=== PATIENT | female | born 1975 | race Caucasian/White ===

== ENCOUNTER → 2016-06-05 | Outpatient (CLI) | payer BC ==
--- NOTE | 2016-06-05 18:54 | CT ---
EXAMINATION TYPE: CT abdomen pelvis wo con DATE OF EXAM: 06/05/2016 6:41 PM COMPARISON: 12/22/2007 HISTORY: RUQ pain and hematuria. CT DLP: 888 mGycm Automated exposure control for dose reduction was used. TECHNIQUE: Helical acquisition of images was performed from the lung bases through the pelvis. FINDINGS: Lung bases are clear. There is no pleural effusion. Heart size is normal. Liver spleen pancreas appear normal. There are clips from cholecystectomy. There is no adrenal mass. There is a 2 mm calcification in the upper pole left kidney. There is no hy dronephrosis. There is no retroperitoneal adenopathy. There are clips apparently from appendectomy. There is a 1.7 cm rounded soft tissue density associate d with the wall of the proximal sigmoid colon on axial image 105. There are no dilated loops. Bladder distends smoothly. Bony structures appear intact. IMPRESSION: THERE IS A SMALL CALCIFICATION IN THE LEFT KIDNEY THAT APPEARS NEW COMPARED TO OLD EXAM. NO SIGN OF A CUTE ABDOMEN AND PELVIS. POSSIBLE 1.7 CM MASS ON THE WALL OF THE PROXIMAL SIGMOID COLON. THIS COULD BE EXCLUDED OR CONFIRMED B Y REPEAT PELVIS CT SCAN WITH BOWEL PREPARATION
== END | disposition home or self-care (01) ==
LOC: RADCTMAIN 18:24
PROVIDERS: ATTEND Internal Medicine Geriatric Medicine
DX: N28.89 Other specified disorders of kidney and ureter (principal)
CPT/HCPCS: 74176

== ENCOUNTER → 2016-09-07 | Outpatient (CLI) | payer BC ==
[2016-09-07 07:44] LABS: Basophils # (A) 0.1 k/uL (0-0.2); Basophils % (A) 1 %; CH 32.7; CHCM 33.6; Eosinophils # (A) 0.2 k/uL (0-0.7); Eosinophils % (A) 3 %; HCT 42.3 % (34.0-46.0); HDW 2.11; HGB 14.1 gm/dL (11.4-16.0); Luc # (Auto) 0.15; Luc % (Auto) 2; Lymphocytes # (A) 2.2 k/uL (1.0-4.8); Lymphocytes % (A) 27 %; MCH 32.6 pg (25.0-35.0); MCHC 33.4 g/dL (31.0-37.0); MCV 97.7 fL (80.0-100.0); Mean Platelet Volume 7.2; Monocytes # (A) 0.3 k/uL (0-1.0); Monocytes % (A) 4 %; Neutrophils # (A) 5.3 k/uL (1.3-7.7); Neutrophils % (A) 64 %; RBC 4.33 m/uL (3.80-5.40); RDW 13.8 % (11.5-15.5); WBC 8.2 k/uL (3.8-10.6); WBC (Perox) 8.12
[2016-09-07 11:09] LABS: ALT 30 U/L (9-52); AST 17 U/L (14-36); Alkaline Phosphatase 46 U/L (38-126); Anion Gap 10 mmol/L; Blood Urea Nitrogen 13 mg/dL (7-17); Carbon Dioxide 25 mmol/L (22-30); Chloride 106 mmol/L (98-107); Cholesterol 165 mg/dL (<200); Creatine Kinase 75 U/L (30-135); Glucose 82 mg/dL (74-99); HDL Cholesterol 45 mg/dL (40-60); Iron 107 ug/dL (37-170); Non-African American GFR(MDRD) >60 (>60 ml/min/1.73 sqM); Potassium 4.1 mmol/L (3.5-5.1); Sodium 141 mmol/L (137-145); Total Bilirubin 0.5 mg/dL (0.2-1.3); Total Protein 6.7 g/dL (6.3-8.2); Triglycerides 74 mg/dL (<150)
[2016-09-07 11:19] LABS: % Iron Saturation 51.9 % (20-50); Total Iron Binding Capacity 206 ug/dL (265-497)
[2016-09-07 12:01] LABS: Vitamin B12 802 pg/mL (239-931)
== END | disposition home or self-care (01) ==
LOC: LABWHC1 06:39
PROVIDERS: ATTEND Family Medicine
DX: K63.5 Polyp of colon (principal); R53.83 Other fatigue; M79.7 Fibromyalgia; Z72.820 Sleep deprivation
CPT/HCPCS: 36415; 80053; 80061; 82105; 82378; 82550; 82607; 83540; 83550; 84439; 84443; 85025; 86376

== ENCOUNTER → 2016-10-10 | Outpatient (CLI) | payer BC | END | disposition home or self-care (01) | LOC: LABWHC1 06:43 | PROVIDERS: ATTEND Nurse Practitioner | DX: D64.9 Anemia, unspecified (principal); R53.83 Other fatigue | CPT/HCPCS: 36415; 82728; 83540; 83550; 84466 ==

== ENCOUNTER → 2016-10-12 | Outpatient (CLI) | payer BC | END | disposition home or self-care (01) | LOC: LABWHC1 06:44 | PROVIDERS: ATTEND Family Medicine | DX: D45 Polycythemia vera (principal) | CPT/HCPCS: 36415; 82533 ==

== ENCOUNTER → 2017-01-16 | Outpatient (CLI) | payer BC ==
[2017-01-16 17:12] LABS: Basophils # (A) 0.1 k/uL (0-0.2); Basophils % (A) 1 %; CH 32.1; CHCM 32.3; Eosinophils # (A) 0.3 k/uL (0-0.7); Eosinophils % (A) 3 %; HCT 40.2 % (34.0-46.0); HDW 2.01; HGB 12.9 gm/dL (11.4-16.0); Luc # (Auto) 0.12; Luc % (Auto) 2; Lymphocytes # (A) 2.9 k/uL (1.0-4.8); Lymphocytes % (A) 37 %; MCH 32.1 pg (25.0-35.0); MCHC 32.1 g/dL (31.0-37.0); MCV 99.9 fL (80.0-100.0); Mean Platelet Volume 7.2; Monocytes # (A) 0.6 k/uL (0-1.0); Monocytes % (A) 7 %; Neutrophils # (A) 3.9 k/uL (1.3-7.7); Neutrophils % (A) 50 %; RBC 4.02 m/uL (3.80-5.40); RDW 13.9 % (11.5-15.5); WBC 7.9 k/uL (3.8-10.6); WBC (Perox) 8.73
[2017-01-17 01:08] LABS: Iron Saturation 22.01 (12.00-45.00)
== END | disposition home or self-care (01) ==
LOC: LABWHC1 16:35
PROVIDERS: ATTEND Internal Medicine Pulmonary Disease
DX: D64.9 Anemia, unspecified (principal)
CPT/HCPCS: 36415; 82728; 83540; 83550; 84466; 85025

== ENCOUNTER → 2017-01-18 | Outpatient (CLI) | payer BC ==
[2017-01-18 08:16] LABS: ALT 31 U/L (9-52); AST 20 U/L (14-36); Alkaline Phosphatase 44 U/L (38-126); Anion Gap 7 mmol/L; Blood Urea Nitrogen 11 mg/dL (7-17); Calcium 9.1 mg/dL (8.4-10.2); Carbon Dioxide 27 mmol/L (22-30); Chloride 106 mmol/L (98-107); Cholesterol 180 mg/dL (<200); Creatine Kinase 53 U/L (30-135); Glucose 94 mg/dL (74-99); HDL Cholesterol 47 mg/dL (40-60); Non-African American GFR(MDRD) >60 (>60 ml/min/1.73 sqM); Potassium 4.6 mmol/L (3.5-5.1); Sodium 140 mmol/L (137-145); Total Bilirubin 0.4 mg/dL (0.2-1.3); Total Protein 7.1 g/dL (6.3-8.2)
== END | disposition home or self-care (01) ==
LOC: LABWHC1 06:39
PROVIDERS: ATTEND Family Medicine
DX: M79.7 Fibromyalgia (principal); K63.5 Polyp of colon
CPT/HCPCS: 36415; 80053; 80061; 82550; 82607; 84439; 84443

== ENCOUNTER → 2017-02-08 | Outpatient (CLI) | payer BC ==
--- NOTE | 2017-02-09 14:27 | MR ---
MRI CERVICAL SPINE: CLINICAL HISTORY: Spondylosis with myelopathy per order. Headache with neck pain causing right arm p ain for 15 years per patient. TECHNIQUE: Multiplanar, multisequence imaging of the cervical spine is performed without IV contrast. COMPARISON: MRI cervical spine November 13, 2012. FINDINGS: Sagittal images of the cervical spine show the craniocervical junction to remain within nor mal limits. The cervical and upper thoracic spinal cord shows AP diameter narrowing centered at C5 v ertebral body level on sagittal images. Reversal of normal cervical curvature is more prominent versu s prior centered C5 level. The vertebral body heights are normal. There is mild to moderate disc sp kin narrowing C4-C5 and C5-C6 levels now seen more prominent versus prior. There is new posterior dis c herniation C4-C5 and increasing herniation C5-C6 level noted on current study. The bone marrow sign al intensity is within normal limits. New mild anterior spurring mid cervical spine is present. Axial images show C2-C3 level to remain within normal limits. Axial images at C3-C4 level show new lobulated paracentral disc protrusion causing asymmetric mild to moderate right sided neural foraminal narrowing. Left-sided neural foramen is patent. Spinal canal i s preserved. Axial images at C4-C5 level show new large right paracentral disc extrusion extending inferiorly effa cing the anterior thecal sac from axial images 23 through 30 causing marked effect on the spinal cord with AP diameter compression most prominent near axial image 24. Bilateral neural foramina remain pa tent. Axial images at C5-C6 level show broad-based right paracentral disc protrusion more prominent versus prior MRI effacing the anterolateral thecal sac and ventral surface of spinal cord and extends 21, th ere is asymmetric moderate to severe left-sided neural foraminal narrowing due to foraminal disc prot rusion component. There is mild right-sided neural foraminal narrowing seen. Axial images at C6-C7 and C7-T1 levels are felt within normal limits. IMPRESSION: Marked progression of degenerative changes from 2013 MRI. New large disc herniation C4-C5 level has significant mass effect on spinal cord without abnormal cord edema definitively seen. Incr easing disc herniation C5-C6 level is noted. Findings quite pronounced for patient's age. Strongly co nsider neurosurgical referral.
== END | disposition home or self-care (01) ==
LOC: RADMRIMAIN 16:35
PROVIDERS: ATTEND Family Medicine
DX: M50.01 Cervical disc disorder with myelopathy, high cervical region (principal); M47.12 Other spondylosis with myelopathy, cervical region
CPT/HCPCS: 72141

== ENCOUNTER → 2017-03-27 | Outpatient (CLI) | payer BC ==
--- NOTE | 2017-03-27 16:20 | XR ---
EXAMINATION TYPE: XR chest 2V DATE OF EXAM: 03/27/2017 COMPARISON: NONE HISTORY: Presurgical study. TECHNIQUE: Frontal and lateral views of the chest are obtained. FINDINGS: There is no focal air space opacity, pleural effusion, or pneumothorax seen. The cardiac silhouette size is within normal limits. The osseous structures are intact. IMPRESSION: No acute cardiopulmonary process.
== END | disposition home or self-care (01) ==
LOC: RADXRMAIN 15:51
PROVIDERS: ATTEND Family Medicine
DX: Z01.818 Encounter for other preprocedural examination (principal)
CPT/HCPCS: 71046

== ENCOUNTER → 2017-04-15 | Outpatient (CLI) | payer BC ==
--- NOTE | 2017-04-15 17:29 | MR ---
EXAMINATION TYPE: MR angio head wo/neck wo/w con DATE OF EXAM: 04/15/2017 COMPARISON: NONE HISTORY: Cluster Headaches, Pulsitile Tinnitis, Gadavist 10ml TECHNIQUE: Time of flight images focusing on the [place] were performed without contrast.. Pre and postcontrast multiplanar multisequence imaging obtained through the neck following 10 cc Gada vist IV, three-dimensional reconstructions. 2-D and 3-D postprocessing imaging is performed. FINDINGS: NECK: There is no evidence stenosis of the proximal internal carotid arteries. Internal, external, co mmon carotid arteries are patent. No evident filling defect or dissection, no vascular malformation. Vertebral arteries are patent and codominant. The innominate artery, left and right subclavian arteri es are patent. 3-D super aortic branch vessels are present within the transverse aorta. [place] is patent. There is no evident aneurysm. No vascular malformation. No evident fillin g defect to suggest dissection or embolus. IMPRESSION: Normal neck and [place] MRA.
== END | disposition home or self-care (01) ==
LOC: RADMRIMAIN 14:57
PROVIDERS: ATTEND Neurological Surgery
DX: M48.02 Spinal stenosis, cervical region (principal); I65.21 Occlusion and stenosis of right carotid artery
CPT/HCPCS: 70544; 70549; A9581

== ENCOUNTER → 2017-05-11 | Outpatient (CLI) | payer BC ==
[2017-05-11 08:58] LABS: Anion Gap 9 mmol/L; Blood Urea Nitrogen 7 mg/dL (7-17); Calcium 9.1 mg/dL (8.4-10.2); Carbon Dioxide 28 mmol/L (22-30); Chloride 105 mmol/L (98-107); Glucose 97 mg/dL (74-99); Potassium 4.4 mmol/L (3.5-5.1); Sodium 142 mmol/L (137-145)
[2017-05-11 09:01] LABS: HCT 41.4 % (34.0-46.0); HGB 13.4 gm/dL (11.4-16.0); MCH 31.1 pg (25.0-35.0); MCHC 32.5 g/dL (31.0-37.0); MCV 95.8 fL (80.0-100.0); Mean Platelet Volume 6.8; Platelet Count 354 k/uL (150-450); RBC 4.32 m/uL (3.80-5.40); RDW 12.8 % (11.5-15.5); WBC 9.2 k/uL (3.8-10.6)
[2017-05-11 09:09] LABS: Partial Thromboplastin Time 23.9 sec (22.0-30.0); Prothrombin Time 9.6 sec (9.0-12.0)
== END | disposition home or self-care (01) ==
LOC: LABWHC1 08:18
PROVIDERS: ATTEND Neurological Surgery
DX: Z01.812 Encounter for preprocedural laboratory examination (principal)
CPT/HCPCS: 36415; 80048; 85027; 85610; 85730

== ENCOUNTER → 2018-10-24 | Outpatient (CLI) | payer BC ==
[2018-10-24 13:34] LABS: Basophils # (A) 0.1 k/uL (0-0.2); Basophils % (A) 1 %; Eosinophils # (A) 0.2 k/uL (0-0.7); Eosinophils % (A) 3 %; HCT 43.9 % (34.0-46.0); HGB 14.6 gm/dL (11.4-16.0); Lymphocytes # (A) 2.9 k/uL (1.0-4.8); Lymphocytes % (A) 35 %; MCH 31.8 pg (25.0-35.0); MCHC 33.2 g/dL (31.0-37.0); MCV 95.6 fL (80.0-100.0); Monocytes # (A) 0.5 k/uL (0-1.0); Monocytes % (A) 5 %; Neutrophils # (A) 4.5 k/uL (1.3-7.7); Neutrophils % (A) 54 %; Platelet Count 345 k/uL (150-450); RBC 4.59 m/uL (3.80-5.40); RDW 14.3 % (11.5-15.5); WBC 8.4 k/uL (3.8-10.6)
== END | disposition home or self-care (01) ==
LOC: LABWHC1 13:17
PROVIDERS: ATTEND Internal Medicine Pulmonary Disease
DX: D72.829 Elevated white blood cell count, unspecified (principal); R53.82 Chronic fatigue, unspecified
CPT/HCPCS: 36415; 85025

== ENCOUNTER → 2020-06-24 | Outpatient (CLI) | payer BC ==
--- NOTE | 2020-06-27 09:15 | MM ---
Reason for exam: additional evaluation requested from prior study. Last mammogram was performed 2 years and 5 months ago. History: Family history of breast cancer in mother at age 64 and breast cancer in cousin. Took hormonal contraceptives for 5 years beginning at age 19. Physical Findings: Nurse did not find any significant physical abnormalities on exam. MG 3D Diag Mammo W/Cad ROBERTO Bilateral CC and MLO view(s) were taken. Prior study comparison: January 15, 2018, bilateral MG 3d screening mammo w/cad. October 26, 2013, bilateral MG screening mammo w CAD. The breast tissue is heterogeneously dense. This may lower the sensitivity of mammography. These results were verbally communicated with the patient and result sheet given to the patient on 06/24/20. ASSESSMENT: Benign, BI-RAD 2 RECOMMENDATION: Routine screening mammogram of both breasts in 1 year. Manage on a clinical basis with regard to dimpling reported by patient.
--- NOTE | 2020-06-27 09:17 | USB ---
Reason for exam: clinical finding. History: Family history of breast cancer in mother at age 64 and breast cancer in cousin. Took hormonal contraceptives for 5 years beginning at age 19. US Breast BILAT Right complete breast ultrasound includes all four quadrants, the retroareolar region and axilla. Finding demonstrates a 2.5 x 1.7 x 1.0cm lymph node at the axilla. Left complete breast ultrasound includes all four quadrants, the retroareolar region and axilla. Finding demonstrates a 1.1 x 1.2 x 0.5cm lymph node at the axilla. Ducts present bilaterally. These results were verbally communicated with the patient and result sheet given to the patient on 06/24/20. ASSESSMENT: Benign, BI-RAD 2 RECOMMENDATION: Routine screening mammogram of both breasts in 1 year. Manage on a clinical basis with regard to palpable regions.
== END | disposition home or self-care (01) ==
LOC: RADMAMWWP 13:35
PROVIDERS: ATTEND Family Medicine
DX: R92.2 Inconclusive mammogram (principal); R59.0 Localized enlarged lymph nodes; Z80.3 Family history of malignant neoplasm of breast
CPT/HCPCS: 77062; 77066

== ENCOUNTER → 2022-01-31 | Outpatient (CLI) | payer MEDICAID ==
--- NOTE | 2022-01-31 22:08 | CT ---
EXAMINATION TYPE: CT abdomen pelvis w con CT DLP: 680.8 mGycm, Automated exposure control for dose reduction was used. DATE OF EXAM: 01/31/2022 4:56 PM COMPARISON: CT 06/05/2016 CLINICAL INDICATION:Female, 46 years old with history of R10.9 UNSPECIFIED ABDOMINAL PAIN; LLQ pain x 6 mos TECHNIQUE: Axial CT of the abdomen and pelvis. Sagittal and coronal reformats were created on a [employer] workstation. Contrast used:70 mL of Isovue 300 with IV Contrast, Oral contrast used: with Oral Contrast FINDINGS: LOWER CHEST: Unremarkable ABDOMEN LIVER: Scattered hepatic cysts. GALLBLADDER AND BILE DUCTS: Gallbladder is surgically absent PANCREAS: Unremarkable. SPLEEN: Unremarkable. ADRENAL GLANDS: Unremarkable. KIDNEYS AND URETERS: No evidence of hydronephrosis or renal calculus. Left renal cyst. Nonobstructing 2 mm right upper pole renal calculus suggested. PELVIS BLADDER: Unremarkable REPRODUCTIVE: Unremarkable. ABDOMEN & PELVIS STOMACH AND BOWEL: No evidence of bowel obstruction. PERITONEUM: No evidence of pneumoperitoneum or free fluid. VASCULATURE: No evidence of aortic aneurysm. MUSCULOSKELETAL: No acute osseous abnormalities mild multilevel disc degeneration changes with levosc oliosis. LYMPH NODES: No gross evidence for lymphadenopathy. SOFT TISSUE/ABDOMINAL WALL: Unremarkable IMPRESSION: No definitive finding to correlate patient's pain. Left ovary is located in the left lower quadrant s imilar to prior in 2017. No evidence colitis or diverticulitis.
== END | disposition home or self-care (01) ==
LOC: RADCTMAIN 15:05
PROVIDERS: ATTEND Family Medicine
DX: R10.9 Unspecified abdominal pain (principal)
CPT/HCPCS: 74177; Q9967

== ENCOUNTER 2023-02-02 09:05 | Emergency (ER) | payer MEDICAID, OTHER ==
[2023-02-02] MEDS ORDERED: KETOROLAC 15 MG/ML 1 ML VIAL IVP STA (09:37)
--- NOTE | 2023-02-02 09:39 | ED ---
General Adult HPI - General Chief complaint: Abdominal Pain Stated complaint: poss Kidney Stone Time Seen by Provider: 02/02/23 09:27 Source: patient Mode of arrival: ambulatory Limitations: no limitations - History of Present Illness Initial comments: Patient is a pleasant 47-year-old female presenting to the emergency department with concerns for possible kidney stone. Patient had a kidney stone back in May with similar symptoms. Onset of symptoms was around 2 days ago. Discomfort is left flank, more posterior. Discomfort has been somewhat waxing and waning but overall consistently worsening. Associated nausea vomiting. Patient does have some urinary urgency and frequency. No dysuria. No fever. - Related Data Allergies Allergy/AdvReac Type Severity Reaction Status Date / Time Sulfa (Sulfonamide Allergy Rash/Hives Verified 02/02/23 09:23 Antibiotics) Review of Systems ROS Statement: Those systems with pertinent positive or pertinent negative responses have been documented in the HPI. ROS Other: All systems not noted in ROS Statement are negative. Constitutional: Denies: fever Eyes: Denies: eye pain ENT: Denies: ear pain Respiratory: Denies: cough Gastrointestinal: Reports: as per HPI. Denies: vomiting Genitourinary: Reports: as per HPI, urgency, frequency. Denies: dysuria Musculoskeletal: Reports: as per HPI Skin: Denies: rash Past Medical History Past Medical History: Hypertension Additional Past Medical History / Comment(s): Kidney stones, migraines History of Any Multi-Drug Resistant Organisms: None Reported Past Surgical History: Appendectomy, Section, Cholecystectomy Past Psychological History: No Psychological Hx Reported Smoking Status: Current every day smoker Past Alcohol Use History: Occasional Past Drug Use History: Marijuana General Exam Limitations: no limitations General appearance: alert, in no apparent distress Head exam: Present: normocephalic Eye exam: Present: normal appearance Neck exam: Present: normal inspection Respiratory exam: Present: normal lung sounds bilaterally Cardiovascular Exam: Present: regular rate, normal rhythm Expanded Peripheral pulses: 2+: Dorsalis Pedis (R), Dorsalis Pedis (L) GI/Abdominal exam: Present: soft, tenderness ( mild tenderness left upper flank), normal bowel sounds. Absent: distended, guarding, rebound, rigid, pulsatile mass Extremities exam: Present: normal inspection Back exam: Present: CVA tenderness (L) Neurological exam: Present: alert Psychiatric exam: Present: normal affect, normal mood Skin exam: Present: normal color Course Vital Signs 02/02/23 09:21 Temperature 98.4 F Pulse Rate 70 Respiratory 20 Rate Blood Pressure 108/76 O2 Sat by Pulse 99 Oximetry Medical Decision Making - Medical Decision Making Was pt. sent in by a medical professional or institution (AKOSUA De Luna, [employer], urgent care, hospital, or usp...) When possible be specific @ -No Did you speak to anyone other than the patient for history (EMS, parent, family, police, friend...)? What history was obtained from this source @ -No Did you review nursing and triage notes (agree or disagree)? Why? @ -I reviewed and agree with nursing and triage notes Were old charts reviewed (outside hosp., previous admission, EMS record, old EKG, old radiological studies, urgent care reports/EKG's, usp records)? Report findings @ -No old charts were reviewed Differential Diagnosis (chest pain, altered mental status, abdominal pain women, abdominal pain men, vaginal bleeding, weakness, fever, dyspnea, syncope, headache, dizziness, GI bleed, back pain, seizure, CVA, palpatations, mental health, musculoskeletal)? @ -Differential Abdominal Pain Women: Appendicitis, Cholecystitis, diverticulosis, ischemic bowel, pancreatitis, hepatitis, UTI, gastroenteritis, AAA, incarcerated hernia, bowel obstruction, constipation, inflammatory bowel, hepatitis, peptic ulcer disease, splenic infarction, perforated viscus, vulvitis, ovarian torsion, PID, kidney stone, placenta abruption, this is not meant to be an all-inclusive list EKG interpreted by me (3pts min.). @ -As above X-rays interpreted by me (1pt min.). @ -KUB shows nonobstructive pattern CT interpreted by me (1pt min.). @ -Computed tomography scan does show some increased stool. Radiologist also visualized vaginal wall thickening U/S interpreted by me (1pt. min.). @ -None done What testing was considered but not performed or refused? (CT, X-rays, U/S, labs)? Why? @ -None What meds were considered but not given or refused? Why? @ -None Did you discuss the management of the patient with other professionals (professionals i.e. AKOSUA De Luna, [employer], lab, RT, psych nurse, social science teacher, director of logistics, teacher, environmental health officer, counseling case manager)? Give summary @ -No Was smoking cessation discussed for >3mins.? @ -No Was critical care preformed (if so, how long)? @ -No Were there social determinants of health that impacted care today? How? (Homelessness, low income, unemployed, alcoholism, drug addiction, transportation, low edu. Level, literacy, decrease access to med. care, intermediate, rehab)? @ -No Was there de-escalation of care discussed even if they declined (Discuss DNR or withdrawal of care, Hospice)? DNR status @ -No What co-morbidities impacted this encounter? (DM, HTN, Smoking, COPD, CAD, Cancer, CVA, ARF, Chemo, Hep., AIDS, mental health diagnosis, sleep apnea, morbid obesity)? @ -None Was patient admitted / discharged? Hospital course, mention meds given and route, prescriptions, significant lab abnormalities, going to OR and other pertinent info. @ -Patient reevaluated and feeling much better. Patient was updated on results. Patient specifically updated on CT abnormalities of vaginal thickening and recommendation for pelvic exam. Patient has no symptoms and refuses this an d will follow-up with primary care physician with this. Patient will also follow-up with her doctor regarding increased stool. Patient states she did have a colonoscopy done just a month ago. Undiagnosed new problem with uncertain prognosis? @ -No Drug Therapy requiring intensive monitoring for toxicity (Heparin, Nitro, Insulin, Cardizem)? @ -No Were any procedures done? @ -No Diagnosis/symptom? @ -Abdominal pain Acute, or Chronic, or Acute on Chronic? @ -Acute Uncomplicated (without systemic symptoms) or Complicated (systemic symptoms)? @ -default Side effects of treatment? @ -No Exacerbation, Progression, or Severe Exacerbation? @ -No Poses a threat to life or bodily function? How? (Chest pain, [place], [place], pneumonia, PE, COPD, DKA, ARF, appy, cholecystitis, CVA, Diverticulitis, Homicidal, Suicidal, threat to staff... and all critical care pts) @ -No - Lab Data Result diagrams: 02/02/23 09:49 02/02/23 09:49 Lab Results 02/02/23 02/02/23 02/02/23 Range/Units 09:49 09:49 09:49 WBC 10.8 H (3.8-10.6) k/uL RBC 4.41 (3.80-5.40) m/uL Hgb 14.5 (11.4-16.0) gm/dL Hct 44.1 (34.0-46.0) % MCV 100.0 (80.0-100.0) fL MCH 32.8 (25.0-35.0) pg MCHC 32.8 (31.0-37.0) g/dL RDW 13.0 (11.5-15.5) % Plt Count 276 (150-450) k/uL MPV 7.4 Neutrophils % 68 % Lymphocytes % 22 % Monocytes % 5 % Eosinophils % 2 % Basophils % 1 % Neutrophils # 7.3 (1.3-7.7) k/uL Lymphocytes # 2.4 (1.0-4.8) k/uL Monocytes # 0.6 (0-1.0) k/uL Eosinophils # 0.3 (0-0.7) k/uL Basophils # 0.1 (0-0.2) k/uL PT 9.7 L (10.0-12.5) sec INR 0.9 (<1.2) APTT 26.1 (22.0-30.0) sec Sodium (137-145) mmol/L Potassium (3.5-5.1) mmol/L Chloride (98-107) mmol/L Carbon Dioxide (22-30) mmol/L Anion Gap mmol/L BUN (7-17) mg/dL Creatinine (0.52-1.04) mg/dL Est GFR (CKD-EPI)AfAm (>60 ml/min/1.73 sqM) Est GFR (CKD-EPI)NonAf (>60 ml/min/1.73 sqM) Glucose (74-99) mg/dL Calcium (8.4-10.2) mg/dL Total Bilirubin (0.2-1.3) mg/dL AST (14-36) U/L ALT (4-34) U/L Alkaline Phosphatase (38-126) U/L Total Protein (6.3-8.2) g/dL Albumin (3.5-5.0) g/dL Amylase (30-110) U/L Lipase (23-300) U/L Urine Color Yellow Urine Appearance Cloudy H (Clear) Urine pH 6.0 (5.0-8.0) Ur Specific [place] 1.030 (1.001-1.035) Urine Protein Trace H (Negative) Urine Glucose (UA) Negative (Negative) Urine Ketones 1+ H (Negative) Urine Blood Small H (Negative) Urine Nitrite Negative (Negative) Urine Bilirubin Negative (Negative) Urine Urobilinogen 3.0 (<2.0) mg/dL Ur Leukocyte Esterase Negative (Negative) Urine RBC 38 H (0-5) /hpf Urine WBC 2 (0-5) /hpf Ur Squamous Epith Cells 10 H (0-4) /hpf Urine Mucus Moderate H (None) /hpf 02/02/23 Range/Units 09:49 WBC (3.8-10.6) k/uL RBC (3.80-5.40) m/uL Hgb (11.4-16.0) gm/dL Hct (34.0-46.0) % MCV (80.0-100.0) fL MCH (25.0-35.0) pg MCHC (31.0-37.0) g/dL RDW (11.5-15.5) % Plt Count (150-450) k/uL MPV Neutrophils % % Lymphocytes % % Monocytes % % Eosinophils % % Basophils % % Neutrophils # (1.3-7.7) k/uL Lymphocytes # (1.0-4.8) k/uL Monocytes # (0-1.0) k/uL Eosinophils # (0-0.7) k/uL Basophils # (0-0.2) k/uL PT (10.0-12.5) sec INR (<1.2) APTT (22.0-30.0) sec Sodium 140 (137-145) mmol/L Potassium 4.2 (3.5-5.1) mmol/L Chloride 103 (98-107) mmol/L Carbon Dioxide 28 (22-30) mmol/L Anion Gap 9 mmol/L BUN 13 (7-17) mg/dL Creatinine 0.67 (0.52-1.04) mg/dL Est GFR (CKD-EPI)AfAm >90 (>60 ml/min/1.73 sqM) Est GFR (CKD-EPI)NonAf >90 (>60 ml/min/1.73 sqM) Glucose 104 H (74-99) mg/dL Calcium 8.8 (8.4-10.2) mg/dL Total Bilirubin 0.6 (0.2-1.3) mg/dL AST 23 (14-36) U/L ALT 13 (4-34) U/L Alkaline Phosphatase 59 (38-126) U/L Total Protein 6.5 (6.3-8.2) g/dL Albumin 3.7 (3.5-5.0) g/dL Amylase 61 (30-110) U/L Lipase 109 (23-300) U/L Urine Color Urine Appearance (Clear) Urine pH (5.0-8.0) Ur Specific [place] (1.001-1.035) Urine Protein (Negative) Urine Glucose (UA) (Negative) Urine Ketones (Negative) Urine Blood (Negative) Urine Nitrite (Negative) Urine Bilirubin (Negative) Urine Urobilinogen (<2.0) mg/dL Ur Leukocyte Esterase (Negative) Urine RBC (0-5) /hpf Urine WBC (0-5) /hpf Ur Squamous Epith Cells (0-4) /hpf Urine Mucus (None) /hpf Disposition Clinical Impression: Abdominal pain Disposition: HOME SELF-CARE Condition: Stable Instructions (If sedation given, give patient instructions): Abdominal Pain (ED), Constipation (ED), High Fiber Diet (ED) Additional Instructions: Please do follow-up with your primary care physician in the next day or 2 for recheck. Have your primary care physician review computed tomography scan and do further investigation. Probable pelvic exam and further. Return for increased pain, fever, worsening or changing symptoms or any other concerns. Is patient prescribed a controlled substance at d/c from ED?: No Referrals: Herlinda Nguyen MD [Primary Care Provider] - 1-2 days Time of Disposition: 12:23
[2023-02-02 10:10] LABS: Basophils # (A) 0.1 k/uL (0-0.2); Basophils % (A) 1 %; Eosinophils # (A) 0.3 k/uL (0-0.7); Eosinophils % (A) 2 %; HCT 44.1 % (34.0-46.0); HGB 14.5 gm/dL (11.4-16.0); Lymphocytes # (A) 2.4 k/uL (1.0-4.8); Lymphocytes % (A) 22 %; MCH 32.8 pg (25.0-35.0); MCHC 32.8 g/dL (31.0-37.0); Mean Platelet Volume 7.4; Monocytes # (A) 0.6 k/uL (0-1.0); Monocytes % (A) 5 %; Neutrophils # (A) 7.3 k/uL (1.3-7.7); Neutrophils % (A) 68 %; Platelet Count 276 k/uL (150-450); RBC 4.41 m/uL (3.80-5.40); WBC 10.8 k/uL (3.8-10.6)
--- NOTE | 2023-02-02 10:21 | XR ---
EXAMINATION TYPE: XR KUB DATE OF EXAM: 02/02/2023 10:09 AM CLINICAL INDICATION:Female, 47 years old with history of abdominal pain; COMPARISON: 02/02/2023. TECHNIQUE: One radiographic view of the abdomen was obtained. FINDINGS: The bowel gas pattern is nonspecific without dilated loops of small or large bowel. There i s no evidence for organomegaly or pneumoperitoneum. The osseous structures are intact. No abnormal calcifications are present. Fecal material and gas are demonstrated throughout the colon and rectum. Right upper quadrant cholecystectomy clips. Multilevel degeneration changes with scoliosis alignment . Large stool burden throughout the colon. IMPRESSION: Large stool burden in the colon on the right predominantly, otherwise, Nonspecific bowel gas pattern without radiographic evidence for acute process.
--- NOTE | 2023-02-02 10:27 | CT ---
EXAMINATION TYPE: CT abdomen pelvis wo con CT DLP: 439 mGycm, Automated exposure control for dose reduction was used. DATE OF EXAM: 02/02/2023 10:09 AM COMPARISON: CT abdomen pelvis most recent from 01/31/2022 CLINICAL INDICATION:Female, 47 years old with history of abdominal pain; left flank pain TECHNIQUE: Axial CT of the ;CT abdomen pelvis wo con;Sagittal and coronal reformats were created on a separate workstation. Contrast used: mL of , (none if empty) Oral contrast used: without Oral Contrast (none if empty) FINDINGS: LOWER CHEST: Unremarkable ABDOMEN LIVER: Left hepatic lobe probable cyst. GALLBLADDER AND BILE DUCTS: The gallbladder surgically absent the cystic duct remnant present. PANCREAS: Unremarkable. SPLEEN: Unremarkable. ADRENAL GLANDS: Unremarkable. KIDNEYS AND URETERS: Nonobstructing left 3 mm calculus. Nonobstructing right 3 mm calculus. No obstru ctive uropathy. PELVIS BLADDER: Unremarkable REPRODUCTIVE: Thickening of the vagina cadena up to 16 mm. ABDOMEN & PELVIS STOMACH AND BOWEL: No evidence of bowel obstruction. There is a large stool burden throughout the col on upstream from the splenic flexure series 202 image 44. Relatively less distended colon and rectum. PERITONEUM/RETROPERITONEUM: No evidence of pneumoperitoneum or free fluid. VASCULATURE: No evidence of aortic aneurysm. MUSCULOSKELETAL: No acute osseous abnormalities LYMPH NODES: No gross evidence for lymphadenopathy. SOFT TISSUE/ABDOMINAL WALL: Unremarkable IMPRESSION: 1. No evidence of obstructive uropathy. 2. There is thickening of the vagina wall correlate for PID. Consider direct visualization. Nonobstr ucting bilateral renal calculi 3. Large stool burden throughout the colon with possible stricture in the left upper quadrant in the splenic flexure. Consider direct visualization of the workup.
[2023-02-02 10:42] LABS: ALT 13 U/L (4-34); AST 23 U/L (14-36); African American GFR (CKD) >90 (>60 ml/min/1.73 sqM); Albumin 3.7 g/dL (3.5-5.0); Alkaline Phosphatase 59 U/L (38-126); Amylase 61 U/L (30-110); Anion Gap 9 mmol/L; Blood Urea Nitrogen 13 mg/dL (7-17); Calcium 8.8 mg/dL (8.4-10.2); Carbon Dioxide 28 mmol/L (22-30); Chloride 103 mmol/L (98-107); Glucose 104 mg/dL (74-99); Lipase 109 U/L (23-300); Non-African American GFR(CKD) >90 (>60 ml/min/1.73 sqM); Potassium 4.2 mmol/L (3.5-5.1); Sodium 140 mmol/L (137-145); Total Bilirubin 0.6 mg/dL (0.2-1.3); Total Protein 6.5 g/dL (6.3-8.2)
[2023-02-02 10:53] LABS: INR 0.9 (<1.2); Partial Thromboplastin Time 26.1 sec (22.0-30.0); Prothrombin Time 9.7 sec (10.0-12.5)
[2023-02-02 11:13] LABS: Appearance,Urine Cloudy (Clear); Bilirubin,Urine Negative (Negative); Blood,Urine Small (Negative); Color,Urine Yellow; Glucose,Urine (UA) Negative (Negative); Ketones,Urine 1+ (Negative); Leukocyte Esterase,Urine Negative (Negative); Mucus,Urine Moderate /hpf; Nitrite,Urine Negative (Negative); Protein,Urine Trace (Negative); RBC,Urine 38 /hpf (0-5); Squamous Epithelial Cell,Urine 10 /hpf (0-4); WBC,Urine 2 /hpf (0-5)
[2023-02-02 12:24] VITALS: BP 159/84; PULSE 68; RESP 18; TEMP 98
== END 2023-02-02 12:28 | disposition home or self-care (01) ==
LOC: EC 09:05
DX: R10.9 Unspecified abdominal pain (principal); I10 Essential (primary) hypertension; F17.200 Nicotine dependence, unspecified, uncomplicated; F12.90 Cannabis use, unspecified, uncomplicated; Z90.49 Acquired absence of other specified parts of digestive tract; Z88.2 Allergy status to sulfonamides
CPT/HCPCS: 36415; 80053; 82150; 83690; 85025; 85610; 85730; 81001; 74018; 74176; 99284; 96374; J1885

== ENCOUNTER → 2024-05-28 | Outpatient (CLI) | payer OTHER ==
--- NOTE | 2024-05-28 10:05 | BD ---
EXAMINATION TYPE: Axial Bone Density DATE OF EXAM: 05/28/2024 CLINICAL HISTORY: 48 years old Female. ICD-10 CODE: E28.310 PREMATURE MENOPAUSE , Additional History : Height: 64.5 Weight: 141 FRAX RISK QUESTIONS: History of Fracture in Adulthood: yes Secondary Osteoporosis: Current Tobacco Use: yes RISK FACTORS HISTORY OF: History of Wrist Fracture: yes, left When: 2024 Surgery to Spine/Hip(right/left)/Wrist (right/left): cervical surgery When: 2019 MEDICATIONS: EXAM MEASUREMENTS: Bone mineral densitometry was performed using the [employer] System. Bone mineral density as measured about the Lumbar spine is: ----- L1-L4(G/cm2): 1.236 T Score Values are as follows: ----- L1: -1.2 ----- L2: -1.0 ----- L3: 1.2 ----- L4: 2.3 ----- L1-L4: 0.5 Z Score Values are as follows: ----- L1: -0.8 ----- L2: -0.6 ----- L3: 1.6 ----- L4: 2.7 ----- L1-L4: 0.9 First dexa at [facility] Bone mineral density about the R hip (g/cm2): 0.914 Bone mineral density about the L hip (g/cm2): 0.905 T Score values are as follows: -----R Neck: -0.9 -----L Neck: -0.8 -----R Total: -0.7 -----L Total: -0.8 Z Score values are as follows: -----R Neck: -0.1 -----L Neck: 0.0 -----R Total: -0.3 -----L Total: -0.3 First dexa at [facility] FRAX%s: The graph provided illustrates a 6.9% chance for a major osteoporotic fx and a 0.6% chance fo r the hips probability for fx in 10 years time. IMPRESSION: Normal (Values between +1 and -1 indicate normal bone mass). Note that measurements are bordering on osteopenia at the hips. Consider repeating this study in 5 years or sooner if there is some new clini alea indication. NOTE: T-SCORE=SD OF THE YOUNG ADULT MEAN. [facility], , 05/28/2024 10:03 AM
--- NOTE | 2024-05-28 13:52 | MM ---
Reason for Exam: Screening (asymptomatic). Last mammogram was performed 3 year(s) and 11 month(s) ago. Patient History: Menarche at age 13. First Full-Term at age 20. Right ovary removed at age 33. Patient has history of breast feeding. Hormonal Contraceptives for 5 years from age 19 until age 25. Maternal cousin had breast cancer. Mother had breast cancer, age 64. Last menstrual period: 01/09/2024 Risk Values: Yvrose 5 year model risk: 1.6%. NCI Lifetime model risk: 15.3%. Prior Study Comparison: 10/26/2013 Bilateral Screening Mammogram, [facility]. 01/15/2018 Bilateral Screening Mammogram, [facility]. 06/24/2020 Bilateral Diagnostic Mammogram, [facility]. Tissue Density: The breasts are heterogeneously dense, which may obscure small masses. Findings: Analyzed By CAD. There is no suspicious group of microcalcifications or new suspicious mass in either breast. Overall Assessment: Negative, BI-RAD 1 Management: Screening Mammogram of both breasts in 1 year. Patient should continue monthly self-breast exams. A clinical breast exam by your physician is recommended on an annual basis. This exam should not preclude additional follow-up of suspicious palpable abnormalities. Note on Yvrose scores and lifetime risk: 1. A Yvrose score greater than 3% is considered moderate risk. If this is the case, consider specialist referral to assess eligibility for a risk reducing agent. 2. If overall lifetime risk for the development of breast cancer is 20% or higher, the patient may qualify for future screening with alternating mammogram and breast MRI. [facility], , 05/28/2024 1:42 PM. Electronically signed and approved by: Danyel Martínez M.D. Radiologist
== END | disposition home or self-care (01) ==
LOC: RADBDWWP 09:04
PROVIDERS: ATTEND Family Medicine
DX: Z12.31 Encounter for screening mammogram for malignant neoplasm of breast (principal); E28.310 Symptomatic premature menopause; M85.89 Other specified disorders of bone density and structure, multiple sites; Z80.3 Family history of malignant neoplasm of breast; Z92.0 Personal history of contraception
CPT/HCPCS: 77063; 77067; 77080